=== PATIENT | female | born 1950 | race Caucasian/White ===

== ENCOUNTER 2020-07-25 09:30 | Day surgery (SDC) | payer MEDICARE, OTHER ==
[~2020-07-25] VITALS: Ht 165.1 cm; Wt 70.2 kg
[~2020-07-25 09:30] MED LIST: ESTRADIOL1 MG PO; HORMONES; LEVSOD75 PO; Loratadine10 MG PO; MULTIVITAMINS1 EAC3 PO; TOCO1000 PO
--- NOTE | 2020-07-25 10:17 | NUR ---
07/25/20 1017 [facility] 1ST IV ATTEMPT RIGHT HAND VEIN BLEW WHEN SALINE WAS PUSHED, 2ND IV ATTEMPT BY RN RIGHT HAND VEIN BLEW -CMT
== END 2020-07-25 11:23 | disposition home or self-care (01) ==
LOC: ORSCSDS 09:30
PROVIDERS: Surgery
PROC: 0DJD8ZZ Inspection of Lower Intestinal Tract, Via Natural or Artificial Opening Endoscopic (ICD-10-PCS; principal; 2020-07-25 10:45)
DX: Z12.11 Encounter for screening for malignant neoplasm of colon (principal); I10 Essential (primary) hypertension; F41.8 Other specified anxiety disorders; E03.9 Hypothyroidism, unspecified; Z79.899 Other long term (current) drug therapy
CPT/HCPCS: J2704; J7120

== ENCOUNTER → 2023-06-02 | Outpatient (CLI) | payer MEDICARE, OTHER | LOC: LAB 09:34 → LAB SHORT 09:34 | DX: R30.0 Dysuria (principal) | CPT/HCPCS: 87086; 87147 ==